=== PATIENT | male | born 1935 | race Caucasian/White ===

== ENCOUNTER → 2018-09-14 | Outpatient (CLI) | payer OTHER ==
[~2018-09-14] MED LIST: ASPIR 8181 MG PO; ATORVASTATIN CA40 MG PO; EMERGEN-C PO; FLAGYL500 MG PO; FOLIC ACID1 MG PO; LEVAQUIN 500 M500 M2 PO; LEVAQUIN 500 M500 MG PO; METAMUCIL PAC1 UDPKT PO; METHOTREXATE 22.5 MG PO; ODOR FREE GARL1 EAC1 PO; TOPROL XL25 MG PO; ULTRAM 50MG TAB50 MG PO; UNICOMPLEX M TA1 TA1 PO; VENTOLIN HFA 1818 GM INH
== END ==
LOC: RAD 09:13
DX: J44.9 Chronic obstructive pulmonary disease, unspecified (principal); Z88.8 Allergy status to other drugs, medicaments and biological substances; Z98.890 Other specified postprocedural states

== ENCOUNTER → 2018-11-27 | Outpatient (CLI) | payer OTHER | LOC: ULTRA 08:58 | DX: I70.0 Atherosclerosis of aorta (principal); M79.604 Pain in right leg; Z88.8 Allergy status to other drugs, medicaments and biological substances ==

== ENCOUNTER → 2019-04-13 | Outpatient (CLI) | payer OTHER | LOC: RAD 08:35 | DX: J44.9 Chronic obstructive pulmonary disease, unspecified (principal) ==